=== PATIENT | male | born 1955 | race Caucasian/White ===

== ENCOUNTER 2021-09-30 05:14 | Observation (INO) ==
--- NOTE | 2021-08-27 16:28 | PAT Medication Instructions ---
Medication Instructions Date of Service August 27, 2021 Home Medications ascorbic acid (vitamin C) 1,000 mg tablet (Vitamin C) 1 g PO QPM cholecalciferol (vitamin D3) 125 mcg (5,000 unit) tablet (Vitamin D3) 125 mcg PO HS duloxetine 60 mg capsule,delayed release (Cymbalta) 60 mg PO QAM furosemide 40 mg tablet 40 mg PO QAM gabapentin 600 mg tablet 1,200 mg PO BID magnesium 200 mg tablet 400 mg PO QPM metoprolol tartrate 25 mg tablet 25 mg PO BID multivitamin 1 cap PO QAM olmesartan 20 mg tablet 20 mg PO QAM omeprazole 40 mg capsule,delayed release 40 mg PO QAM potassium chloride 20 mEq tablet,extended release 20 meq PO QAM rosuvastatin 5 mg tablet (Crestor) 5 mg PO QPM turmeric 400 mg capsule 500 mg PO BID vitamin B complex 1 cap PO QAM zinc 50 mg tablet 50 mg PO QPM STOP taking 2 weeks before surgery (or as soon as possible if surgery is within 2 weeks) turmeric 400 mg capsule 500 mg PO BID DO NOT take the morning of surgery furosemide 40 mg tablet 40 mg PO QAM multivitamin 1 cap PO QAM olmesartan 20 mg tablet 20 mg PO QAM potassium chloride 20 mEq tablet,extended release 20 meq PO QAM vitamin B complex 1 cap PO QAM Take morning of surgery With a small sip of water, OTHERWISE NOTHING TO EAT OR DRINK AFTER MIDNIGHT: duloxetine 60 mg capsule,delayed release (Cymbalta) 60 mg PO QAM gabapentin 600 mg tablet 1,200 mg PO BID metoprolol tartrate 25 mg tablet 25 mg PO BID omeprazole 40 mg capsule,delayed release 40 mg PO QAM Take evening before surgery ascorbic acid (vitamin C) 1,000 mg tablet (Vitamin C) 1 g PO QPM cholecalciferol (vitamin D3) 125 mcg (5,000 unit) tablet (Vitamin D3) 125 mcg PO HS gabapentin 600 mg tablet 1,200 mg PO BID magnesium 200 mg tablet 400 mg PO QPM metoprolol tartrate 25 mg tablet 25 mg PO BID rosuvastatin 5 mg tablet (Crestor) 5 mg PO QPM zinc 50 mg tablet 50 mg PO QPM Other Notes If you have any questions please call us at [phone] or [phone] or [phone] or [phone]
--- NOTE | 2021-09-01 12:20 | History & Physical Report ---
Date of Service September 01, 2021 date of surgery: 09/30/21 Procedure: Right Total Knee Arthroplasty Surgeon: Cristofer Hancock Assessment & Plan (1) Arthritis of right knee: Plan: Presents for preop evaluation prior to right total knee replacement at [facility]. All questions and concerns have been answered today. Will place on aspirin 81 mg p.o. twice a day for a month postop for DVT prophylaxis. We will plan on discharge home with home health physical therapy, overnight stay. He will need medical clearance as well as cardiac clearance which is scheduled for September 05. He otherwise has no other questions or concerns or like to proceed with surgical intervention The risks and benefits have been discussed including, but not limited to, risk of infection, nerve injury, stiffness, loss of motion, failure to improve, etc. Reasonable outcomes and options of treatment were discussed. An explanation of appropriate alternatives to the procedure that may be advantageous were discussed and their risks and benefits, as well as the risks and benefits of not proceeding with treatment. I offered to answer any additional inquiries concerning the treatment involved. All the patient's questions were answered. The patient is agreeable, understanding of the treatment plan and alternatives, and wishes to proceed with the treatment plan. History of Present Illness Chief Complaint: Right knee pain Primary Care Provider: NO PCP Dane is a 66 year old who complains of right knee pain, presents for pre-op evaluation prior to a right total knee replacement by Dr Hancock at [facility]. He complains of pain and stiffness in the right knee. Currently the patient states that the symptoms are moderate-severe and rated as 7/10. The pain is described as aching, sharp and throbbing. His symptoms are aggravated by ascending stairs, daily activities, first steps while awake walking. Prior NSAIDs include IBU and Aleve. He has been treated with previous injections including Durolane injections in the past without much relief. Allergies Allergy/AdvReac Type Severity Reaction Status Date / Time atorvastatin [From Lipitor] AdvReac Unknown felt old, Verified 08/22/21 12:40 muscle aches Home Medications Medication Instructions Recorded Confirmed Type ascorbic acid (vitamin C) 1,000 mg 1 g PO QPM 08/22/21 08/22/21 History tablet (Vitamin C) cholecalciferol (vitamin D3) 125 125 mcg PO HS 08/22/21 08/22/21 History mcg (5,000 unit) tablet (Vitamin D3) duloxetine 60 mg capsule,delayed 60 mg PO QAM 08/22/21 08/22/21 History release (Cymbalta) furosemide 40 mg tablet 40 mg PO QAM 08/22/21 08/22/21 History gabapentin 600 mg tablet 1,200 mg PO BID 08/22/21 08/22/21 History magnesium 200 mg tablet 400 mg PO QPM 08/22/21 08/22/21 History metoprolol tartrate 25 mg tablet 25 mg PO BID 08/22/21 08/22/21 History multivitamin 1 cap PO QAM 08/22/21 08/22/21 History olmesartan 20 mg tablet 20 mg PO QAM 08/22/21 08/22/21 History omeprazole 40 mg capsule,delayed 40 mg PO QAM 08/22/21 08/22/21 History release potassium chloride 20 mEq 20 meq PO QAM 08/22/21 08/22/21 History tablet,extended release rosuvastatin 5 mg tablet (Crestor) 5 mg PO QPM 08/22/21 08/22/21 History turmeric 400 mg capsule 500 mg PO BID 08/22/21 08/22/21 History vitamin B complex 1 cap PO QAM 08/22/21 08/22/21 History zinc 50 mg tablet 50 mg PO QPM 08/22/21 08/22/21 History Past Med/Surg History Medical History Acid reflux Aortic stenosis mild, ASA 1.2 m2 and 13 mmHg Bicuspid cardiac valve ANNEURYSM ABOVE - CURRENT SIZE 4.6 - monitored yearly/ DR BALDWIN Bradycardia History of colonic polyps BENIGN HTN (hypertension) Hyperlipidemia Mitral regurgitation mild Neuropathy Thoracic aortic aneurysm 4.8 cm, serial echos and yearly CAT per cardio Tricuspid regurgitation mild to moderate Surgical History History of cardiac cath [facility] - NO STENT(S) History of colonoscopy History of endoscopy History of lumbar fusion Family History Brother Family history of diabetes mellitus Family history of pancreatic cancer Brother Family history of diabetes mellitus Brother No problems noted. Sister Family history of colon cancer Social History Smoking Status: Never smoker Hx Alcohol Use: Yes Alcohol type: beer Preferred Language: Nepali Communication Ability: Effective Talent Acquisition Partner Required: No Beliefs That Will Affect Care: None Current Living Situation: Spouse Feels Safe at Home: Yes Assistive Devices: Glasses and Hearing Aid - Bilateral Review of Systems Review of Systems: All systems reviewed & are unremarkable except as noted in HPI & below Constitutional: no fever, no chills and no sweats Respiratory: no cough and no dyspnea Cardiovascular: no chest pain, no dyspnea and no orthopnea Gastrointestinal: no abdominal pain, no nausea and no vomiting Musculoskeletal: as per Subjective / HPI Physical Exam Physical Exam: HT: 6ft WT: 113.398 kg Constitutional: WD/WN, vitals as above no acute distress Respiratory: normal respiratory effort, lungs clear to auscultation no respiratory distress, no labored breathing and does not use accessory muscles Cardiovascular: RRR, no murmur, no edema Gastrointestinal (Abdomen): normal bowel sounds, soft, nontender, no hepatosplenomegaly Musculoskeletal: Knee: + knee abnormal to inspection (RIGHT KNEE ), + effusion (+1 effusion), + limited ROM of knee (ROM 0/3/110), + knee ROM with crepitation, + joint line tenderness (medial joint line) and + Trevor's sign positive; no deformity, no skin erythema, no ecchymosis, no surgical incision, no valgus laxity, no varus laxity, anterior drawer test negative, Omega's sign negative and pivot shift test negative Results & Data Results & Data ([facility]) Diagnostic Findings Right Knee X-ray: Right knee series showing advanced degenerative changes to the right knee, narrowing of the medial compartment and patello-femoral joint with patellar spurring noted, findings showing joint space narrowing of the medial compartment and patello-femoral joint, osteophyte formation and subchondral sclerosis noted. overall varus alignment. no acute bony pathology noted.
--- NOTE | 2021-09-01 12:53 | Anesthesiology Consultation ---
Date of Service September 01, 2021 Assessment & Plan (1) Encounter for pre-operative examination: - Elevated creatinine: Preop creatinine elevated at 1.51. No known hx of CKD. Awaiting PCP response to elevated creatinine and surgeon-ordered PCP clearance (09/05; Dr. Jesus Rivera/[facility]). - Cardiology note (07/28/21): "Per [facility] Criteria pt is low risk (0.4%).. OK to clear" > Per patient, he is also scheduled to see cardiology prior to surgery (09/05; Dr. Benoit). Awaiting cardiology office visit note. - COVID screening: Per assessment on 09/01: No known COVID-19 positive contacts or current COVID-19 related symptoms. Travel screen negative. Patient vaccinated. Surgeon arranging preop COVID testing. Awaiting results. Chart Review Chart Review: Patient seen in Pre Admission Testing Teaching & Discussion Pre-Anesthesia Teaching/Discussion Notes: Instructed NPO after midnight before surgery,except medications with 15 cc of water. Medication instructions provided according to the PAT guidelines. History Surgery Operation Date: 09/30/21 08:25 Proposed Procedures p Right Total Knee Arthroplasty - Cristofer Hancock DO Height/Weight Height: 6 ft Weight: 120.5 kg Allergies Allergy/AdvReac Type Severity Reaction Status Date / Time atorvastatin [From Lipitor] AdvReac Unknown [place] old, Verified 09/01/21 12:46 muscle aches Medications Home Medications Medication Instructions Recorded Confirmed Last Taken ascorbic acid (vitamin C) 1,000 mg 1 g PO QPM 08/22/21 08/22/21 Unknown tablet (Vitamin C) cholecalciferol (vitamin D3) 125 125 mcg PO HS 08/22/21 08/22/21 Unknown mcg (5,000 unit) tablet (Vitamin D3) duloxetine 60 mg capsule,delayed 60 mg PO QAM 08/22/21 08/22/21 Unknown release (Cymbalta) furosemide 40 mg tablet 40 mg PO QAM 08/22/21 08/22/21 Unknown gabapentin 600 mg tablet 1,200 mg PO BID 08/22/21 08/22/21 Unknown magnesium 200 mg tablet 400 mg PO QPM 08/22/21 08/22/21 Unknown metoprolol tartrate 25 mg tablet 25 mg PO BID 08/22/21 08/22/21 Unknown multivitamin 1 cap PO QAM 08/22/21 08/22/21 Unknown olmesartan 20 mg tablet 20 mg PO QAM 08/22/21 08/22/21 Unknown omeprazole 40 mg capsule,delayed 40 mg PO QAM 08/22/21 08/22/21 Unknown release potassium chloride 20 mEq 20 meq PO QAM 08/22/21 08/22/21 Unknown tablet,extended release rosuvastatin 5 mg tablet (Crestor) 5 mg PO QPM 08/22/21 08/22/21 Unknown turmeric 400 mg capsule 500 mg PO BID 08/22/21 08/22/21 Unknown vitamin B complex 1 cap PO QAM 08/22/21 08/22/21 Unknown zinc 50 mg tablet 50 mg PO QPM 08/22/21 08/22/21 Unknown Past Medical History Medical History Acid reflux Aortic stenosis Mild, ASA 1.2 m2 and 13 mmHg per 09/2020 echo Ascending aorta dilation Dilated ascending aorta (4.8cm) on 09/30/20 echo Bicuspid cardiac valve Bradycardia HTN (hypertension) Hyperlipidemia Neuropathy Exercise / Class Metabolic Activity III < 4 Walking/Shop/Light housework (one FS (no CP, + SOB)) Past Family History Family History Brother Family history of diabetes mellitus Family history of pancreatic cancer Brother Family history of diabetes mellitus Brother No problems noted. Sister Family history of colon cancer Past Surgical History Surgical History History of cardiac cath Remote hx ([place]) > no stents History of colonoscopy History of endoscopy History of lumbar fusion Past Anesthesia History No Hx of Anesthesia Complications and No Family Hx of Anesthesia Complications History of PONV No Hx of PONV and No Hx of Motion Sickness Social History Smoking Status: Never smoker tobacco type: smokeless tobacco Do You Dip or Chew Tobacco: Yes (1 can/week > advised none DOS) Hx Alcohol Use: Yes Alcohol type: beer alcohol intake frequency: holidays/special occasions only substance use type: does not use Review of Systems Patient denies chest pain, shortness of breath, fever, chills, cough, wheezing, palpitations. Physical Exam Vital Signs VITALS BP 97/63 (Earlier today 118/75 per pt) P 69 TEMP 98.4 SP02 95%RA RESP 16 PHYSICAL Full cervical extension range of motion. Full TMJ range of motion. TMD 4 finger breaths Mallampati Score 1 Dentition: lower partial Lungs: clear throughout to auscultation Cardiac: regular rate and rhythm, distant heart sounds Spine: normal Carotid arteries: negative bruit Extremities: no edema Lab Results Anesthesia Preop Results Results Anesthesia Widget: WBC 7.68 K/ul (4.8-10.8) 09/01/21 Hgb 14.2 g/dl (14.0-18.0) 09/01/21 Hct 42.9 % (40.1-51.0) 09/01/21 Plt 211 K/uL (130-400) 09/01/21 Na 139 mmol/L (136-145) 09/01/21 K 4.3 mmol/L (3.5-5.1) 09/01/21 Cl 102 mmol/L (98-107) 09/01/21 CO2 28 mmol/L (21-32) 09/01/21 BUN 23 mg/dl (6-23) 09/01/21 Creat 1.51 mg/dl (0.6-1.4) H 09/01/21 Glucose Level 149 mg/dl (70-99(Fasting)) H 09/01/21 PT 10.3 Seconds (9.0-12.0) 09/01/21 PTT 25.1 Seconds (21.0-31.0) 09/01/21 INR 1.0 (0.9-1.1) 09/01/21 HA1c 5.9 % (4.5-5.6) H 09/01/21 Urine Color Yellow 09/01/21 Urine Appearance Clear (Clear) 09/01/21 Urine pH 5.5 (4.5-7.5) 09/01/21 Urine Specific [place] 1.013 (1.000-1.030) 09/01/21 Urine Protein Negative (Negative) 09/01/21 Urine Glucose (UA) Negative (Negative) 09/01/21 Urine Ketones Negative (Negative) 09/01/21 Urine Blood Negative (Negative) 09/01/21 Urine Nitrite Negative (Negative) 09/01/21 Urine Bilirubin Negative (Negative) 09/01/21 Urine Urobilinogen Negative (Negative) 09/01/21 Urine Leukocyte Esterase Negative (Negative) 09/01/21 Blood Type A Positive 09/01/21 Antibody Screen NEGATIVE 09/01/21 Testing Electrocardiogram Date: 09/01/21 NSR at 65bpm. LAD. Minimal voltage criteria for LVH, may be normal variant. Chest X-Ray Date: 09/01/21 Findings: + NAD Echocardiogram Date: 09/30/20 EF 55-60%. Thickened and bicuspid aortic valve with mild aortic stenosis. JINNY 1.2 cm. Mean gradient is 30 mmHg. Thickened mitral valve with mild r egurgitation. Mild to moderate TR. Mild IN. Mild dilated aortic root. Ascending aorta is dilated at 4.8 cm. There is an impaired relaxation pattern consistent with diastolic dysfunction grade 1. Stress Test Date: 07/14/19 No significant ischemia or infarction. SPECT perfusion images are considered to be within normal limits. Nondiagnostic ECG response. LVEF 54%. 39% MPHR.
[2021-09-30] MEDS ORDERED: ROPIVACAINE 0.5% HCL/PF 150 MG, BUPIVACAINE 0.75% MPF 20 ML, EPINEPHrine 30MG/30ML (OR ... INFIL SCH (06:00)
[2021-09-30] MEDS ORDERED: dexAMETHasone 4 MG TAB PO SCH (06:00)
[2021-09-30] MEDS ORDERED: GABAPENTIN 300 MG CAP PO SCH (06:00)
[2021-09-30] MEDS ORDERED: ACETAMINOPHEN 500 MG TAB PO SCH (06:00)
[2021-09-30] MEDS ORDERED: METOCLOPRAMIDE HCL 10 MG TABLET PO SCH (06:00)
[2021-09-30] MEDS ORDERED: FAMOTIDINE 20 MG TAB PO SCH (06:00)
[2021-09-30] MEDS ORDERED: CeleBREX 200 MG CAP PO SCH (06:00)
[2021-09-30] MEDS ORDERED: TRANEXAMIC ACID 1,000 MG **IV Intra-op IV SCH (06:00)
[2021-09-30] MEDS ORDERED: TRANEXAMIC ACID 1,000 MG **IV Pre-op IV SCH (06:00)
[2021-09-30] MEDS ORDERED: LR 500ML BOLUS, THEN 15ML/HR IV SCH (06:00)
[2021-09-30] MEDS ORDERED: EPINEPHrine INJ 1 MG/ML AMP ONE (06:22)
[2021-09-30] MEDS ORDERED: ROPIVACAINE 0.5% 5 MG/ML 30 ML VIAL ONE (06:22)
[2021-09-30] MEDS ORDERED: BUPIVACAINE 0.5 % 5 MG/1 ML PF 10ML VIAL ONE (06:22)
[2021-09-30] MEDS ORDERED: ORTHO JOINT ANESTHETIC ONE (06:42)
[2021-09-30] MEDS ORDERED: PROPOFOL IV EMULSION 10 MG/ML 100 ML VIAL IV ONE (06:49)
[2021-09-30] MEDS ORDERED: MIDAZOLAM HCL 1 MG/ML 2ML VIAL ONE (06:53)
[2021-09-30] MEDS ORDERED: ATROPINE SULFATE 0.1 MG/ML 10ML SYR IV PRN (07:01)
[2021-09-30] MEDS ORDERED: PROMETHAZINE HCL 12.5 MG in SODIUM CHLORIDE 0.9% 50 ML IV PRN (07:01)
[2021-09-30] MEDS ORDERED: fentaNYL citrate 100 MCG/2 ML VIAL IV PRN (07:01)
[2021-09-30] MEDS ORDERED: ePHEDrine sulfate 50 MG/ML AMP IV PRN (07:01)
[2021-09-30] MEDS ORDERED: HYDROmorphone INJ 2 MG/ML SYR/VIAL IV PRN (07:01)
[2021-09-30] MEDS ORDERED: ONDANSETRON INJ 2 MG/ML 2 ML VIAL IV PRN ×2 (07:01→10:47)
--- NOTE | 2021-09-30 07:15 | History & Physical Bridge Note ---
Date of Service September 30, 2021 History & Physical Bridge Note I have examined the patient, reviewed the History & Physical and in the interval since the performance of the History & Physical I have noted the following changes of clinical significance: no changes noted
--- NOTE | 2021-09-30 08:27 | Operative Report ---
Post Operative Report Pre & Post Diagnosis Operation Date: 09/30/21 07:00 Pre-Op Diagnosis: Unilateral Primary Osteoarthritis, Right Knee Post-Op Diagnosis: Unilateral Primary Osteoarthritis, Right Knee I identified the patient and participated in the time-out.: Yes Procedure Operation Date: 09/30/21 07:00 Actual Procedures p Right Total Knee Arthroplasty(Right) utilizing [employer] persona total knee arthroplasty size 12 standard femur H tibia 10 medial constrained polythirty 4 oval patella- Cristofer Hancock DO Surgeon Cristofer Hancock DO Floorworker Lasting Vic GOTTLIEB Estimated Blood Loss 5 Findings Consistent with Post-Op Diagnosis Patient presents with severe end-stage tricompartmental degenerative joint disease 15 degree flexion contracture varus alignment subchondral sclerosis marginal osteophytes [id number] for total knee arthroplasty with a moderate to large effusion Specimens Bone and cartilage Drains Medium bore Hemovac Anesthesia Type MAC Spinal Regional Complications none Disposition Accompanied Patient To Recovery: No Disposition: Recovery Room Indications Patient presents for total knee arthroplasty after failed attempted conservative management and physical therapy anti-inflammatories relative rest activity modification corticosteroid injection Visco supplementation above intraoperative findings are noted Description of Procedure After proper prepping and draping of the Right lower extremity anterior midline incision was made over the region of the extensor extensor mechanism after meticulous hemostasis was obtained and maintained in subcutaneous tissues a medial parapatellar incision was made The patella was subluxed lateralward the medial lateral gutter were cleaned from any hypertrophic synovitis and scar tissue of the distal femoral block was placed and the distal femoral osteotomy cut was made subsequently the chamfers anterior and posterior osteotomy cuts were made utilizing the 4-in-1 block the tibia was subsequently subluxed anteriorward medial and ateral meniscal remnants were excised in their entirety remnants of the anterior and posterior cruciate ligaments were excised in their entirety excellent exposure of the proximal tibia was obtained the tibial osteotomy guide was placed on the proximal tibial osteotomy cut was made once again the knee was irrigated with copious amounts of sterile saline solution the patella was subsequently everted lateralward thickened scar tissue around the patella was removed the patella was subsequently cut utilizing a freehand technique and was drilled prepared for final preparation and placement of patella socially flexion-extension gaps were checked and the equal and symmetric trials were placed to the appropriate femoral and tibial trials with poly-spacer being placed for equal flexion and extension gaps and full range of motion including extension to 0 and flexion to 140 the trial components after having been taken to recovery range of motion was subsequently removed meticulous hemostasis was obtained and maintained subsequently a knee block injection of joint cocktail including ropivacaine 0.5% 150 mg. Bupivacaine 0.5% epinephrine 1-200,030 mL's toradol 30 mg dexamethasone 4 mg ketamine 10 mg clonidine 100 micrograms normal saline solution 30 mg was infiltrated into the soft tissues of the posterior knee medial lateral gutters and periosteal synovium special attention was paid to protect neurovascular structures at all times subsequently trial components having been removed the knee was irrigated with sterile saline solution. debris was removed the proximal tibia was subsequently prepared and was made ready for the placement of the tibial component tibial component was also cemented and tamped into position the femoral component was subsequently placed and cemented in the position the patellar component was subsequently cemented in position because hemostasis once again obtained and maintained wound having been thoroughly irrigated with debridement and debridement lavage was performed as well as a medial parapatellar incision closed with #1 Vicryl in interrupted fashion subcutaneous was closed with #2 Vicryl skin was closed with skin clips. PA-C was necessary for prepping and drapping as well as wound closure of deep fascia Sub cutaneous tissue and skin and was necessary for the case. A sterile compressive dressing was placed patient was taken to recovery in stable condition of report dictated by Santi I attest to the content of the Intraoperative Record and any orders documented therein. Any exceptions are noted below.Due to the complex nature of the procedure, the entire surgery was performed with the operational assistance of Vic GOTTLIEB the assistant professor of forestry, under direct supervision, was involved in the actual performance of all aspects of the surgical procedure including hemostasis, tissue retraction and incision, instrument management, patient positioning, and wound closure. I attest to the content of the Intraoperative Record and any orders documented therein. Any exceptions are noted below.
[2021-09-30] MEDS ORDERED: PROPOFOL IV EMULSION 10 MG/ML 20 ML VIAL IV ONE (08:45)
--- NOTE | 2021-09-30 09:47 | XRay Report ---
XR knee RT 1 or 2V routine HISTORY: 66 years-old Male Surgical Post Op right knee total joint arthroplasty COMPARISON: None TECHNIQUE: 2 views of the right knee FINDINGS: Right knee total joint arthroplasty with patellar resurfacing. Surgical drainage catheter is in place along with expected postoperative soft tissue swelling with deep tissue air. No acute fracture, brissa lignment or unexpected opaque foreign body. IMPRESSION: Right knee total joint arthroplasty with expected postoperative changes. ACT 112: Negative or not required by law. The above report was generated using voice recognition software. It may contain grammatical, syntax o r spelling errors. Electronically signed by: Kevan Armstrong M.D. 09/30/2021 9:46 AM
[2021-09-30] MEDS ORDERED: oxyCODONE HCL IR 5 MG TAB (IMMEDIATE RELEASE) PO PRN (10:47)
[2021-09-30] MEDS ORDERED: bisacodyL 10 MG SUPP PR PRN (10:47)
[2021-09-30] MEDS ORDERED: MAGNESIUM HYDROXIDE SUSP 30 ML UDC PO PRN (10:47)
[2021-09-30] MEDS ORDERED: HYDROmorphone INJ 0.5 MG/0.5 ML SYR IV PRN (10:47)
[2021-09-30] MEDS ORDERED: diphenhydrAMINE 50 MG/ML VIAL IV PRN (10:47)
[2021-09-30] MEDS ORDERED: NALOXONE HCL 0.4 MG/1 ML VIAL/CARP IV PRN (10:47)
--- NOTE | 2021-09-30 11:03 | Anesthesiology Progress Note ---
Date of Service September 30, 2021 Anesthesia Post Procedure Vital Signs Vital Signs: Temp Pulse Pulse Resp BP Pulse Ox O2 Del Method 09/30/21 10:45 36.3 C L 60 16 114/72 98 Room Air 09/30/21 10:15 36.4 C L 59 L 16 108/81 99 Nasal Cannula 09/30/21 10:05 58 L 12 117/73 97 Nasal Cannula 09/30/21 09:40 60 17 111/71 97 Nasal Cannula 09/30/21 09:30 60 14 109/71 95 Nasal Cannula 09/30/21 09:50 36.5 C 57 L 14 116/71 95 Nasal Cannula 09/30/21 09:20 65 11 L 104/65 94 Nasal Cannula 09/30/21 09:10 36.4 C L 71 14 117/64 96 Oxymask 09/30/21 05:59 36.8 C 63 18 151/93 H 97 Room Air O2 Flow Rate 09/30/21 10:45 09/30/21 10:15 2 09/30/21 10:05 2 09/30/21 09:40 4 09/30/21 09:30 4 09/30/21 09:50 2 09/30/21 09:20 4 09/30/21 09:10 5 09/30/21 05:59 Transfer of Care Handoff Completed per policy Notes Mental Status: alert / awake / arousable and participated in evaluation Nausea / Vomiting: adequately controlled Pain: adequately controlled Airway Patency, RR, SpO2: stable & adequate BP & HR: stable & adequate Hydration State: stable & adequate Neuraxial Anesthesia: was administered and sensory block is resolving Anesthetic Complications: no major complications apparent and Pt Satisfied with anesthetic care
[2021-09-30] MEDS: SODIUM CHLORIDE 0.9% 1000ML 1,000 ML IV SCH ×2 (11:08→15:36)
[2021-09-30] MEDS: ACETAMINOPHEN 500 MG TAB PO SCH ×2 (15:37→22:37)
[2021-09-30] MEDS: ceFAZolin 2000MG 2,000 MG/15 ML SYR IV SCH ×2 (17:16→22:38)
[2021-09-30] MEDS: DOCUSATE SODIUM 100 MG CAP PO SCH (20:27)
[2021-09-30] MEDS: METOPROLOL TARTRATE 25 MG TAB PO SCH (20:28)
[2021-09-30] MEDS: GABAPENTIN 600 MG TAB PO SCH (20:29)
[2021-09-30] MEDS: ASPIRIN 81 MG ECTAB PO SCH (20:29)
[2021-09-30] MEDS ORDERED: ZINC SULFATE 220 MG CAPSULE PO SCH (21:00)
[2021-09-30] MEDS ORDERED: ROSUVASTATIN CALCIUM 5 MG TAB PO SCH (21:00)
[2021-09-30] MEDS ORDERED: CHOLECALCIFEROL 5,000 UNITS 125 MCG TAB PO SCH (21:00)
[2021-09-30] MEDS ORDERED: MAGNESIUM OXIDE 400 MG TAB PO SCH (21:00)
[2021-09-30] MEDS ORDERED: SENNA 8.6 MG TAB PO SCH (21:00)
[2021-10-01] MEDS: SODIUM CHLORIDE 0.9% 1000ML 1,000 ML IV SCH (02:08)
[2021-10-01] MEDS: ACETAMINOPHEN 500 MG TAB PO SCH (05:47)
--- NOTE | 2021-10-01 07:33 | Orthopedic Progress Note ---
Date of Service October 01, 2021 Assessment & Plan (1) Arthritis of right knee: Plan: POD #1 s/p Right TKA pt/ot dvt proph with VILMA/SCD/ASA plan for d/c home with HHPT Admission and Anticipated Discharge Date Admission Date: September 30, 2021 Subjective POD #1 s/p Right TKA Review of Systems Constitutional: no fever, no chills and no sweats Respiratory: no cough and no dyspnea Cardiovascular: no chest pain and no dyspnea Gastrointestinal: no abdominal pain, no nausea and no vomiting Physical Exam Physical Exam: Vital Signs Temp 36.5 C 10/01/21 06:28 Pulse 55 L 10/01/21 06:28 Resp 20 10/01/21 06:28 BP 125/74 10/01/21 06:28 Pulse Ox 93 10/01/21 06:28 O2 Del Method 10/01/21 06:28 O2 Flow Rate 2 09/30/21 10:15 Intake & Output 09/30/21 10/01/21 10/01/21 18:59 06:59 18:59 Intake Total 2122.5 / 3122.5 1000 / 3122.5 Output Total 141 / 1142 1001 / 1142 Balance 1981.5 / 1979.5 -1979. Weight 119.2 kg Intake: IV 272.5 / 1272.5 1000 / 1272.5 Lactated Ringe r's 1,000 ml @ 15 0 / 0 mls/hr IV .Q24 H RICKY Rx#: [id number] Sodium Chlorid e 0.9% 1000ML 1, 1000 / 1000 000 ml @ 100 m ls/hr IV .Q10H RICKY Rx#:[id number] Tranexamic Aci d / 0.7% NaCl 1, 200 / 200 000 mg In 100 ml @ 600 mls/hr IV TODAY@0600 RICKY Rx#:[id number] ceFAZolin 3000 MG 72.5 ml @ 130 72.5 / 72.5 mls/hr IV PREO P RICKY Rx#: [id number] IV Perioperative 1500 / 1500 Oral 350 / 350 Output: Urine 701 / 701 Estimated Blood Loss 5 / 5 Drain Output 136 / 436 300 / 436 Left Knee Hemo vac #1 / Right Knee Hem ovac #1 135 / 435 300 / 435 Musculoskeletal: Right Leg: NVDI, calf SNT, negative myrtle sign. DP palpable, able to wiggle toes/ankle movement without difficulty. dressing clean dry and intact. Results & Data ([facility]) Vital Signs (Past 12 Hours) Vital Signs Temp Pulse Pulse Resp BP Pulse Ox O2 Del Method 10/01/21 06:28 36.5 C 55 L 20 125/74 93 Room Air 10/01/21 04:01 36.4 C L 73 20 118/64 Room Air 09/30/21 22:17 36.5 C 62 16 106/68 95 Room Air 09/30/21 20:24 36.8 C 64 16 113/66 93 Room Air
[2021-10-01] MEDS: ASPIRIN 81 MG ECTAB PO SCH (08:26)
[2021-10-01] MEDS: DOCUSATE SODIUM 100 MG CAP PO SCH (08:26)
[2021-10-01] MEDS: GABAPENTIN 600 MG TAB PO SCH (08:27)
[2021-10-01] MEDS: METOPROLOL TARTRATE 25 MG TAB PO SCH (08:28)
[2021-10-01] MEDS ORDERED: MULTIVITAMIN TAB PO SCH (09:00)
[2021-10-01] MEDS ORDERED: POTASSIUM CHLORIDE CRTAB 20 MEQ TABCR PO SCH (09:00)
[2021-10-01] MEDS ORDERED: NON-FORMULARY MEDICATION (Multivitamin Capsule) PO SCH (09:00)
[2021-10-01] MEDS ORDERED: FUROSEMIDE 40 MG TAB PO SCH (09:00)
[2021-10-01] MEDS ORDERED: OLMESARTAN MEDOXOMIL 20 MG TAB PO SCH (09:00)
[2021-10-01] MEDS ORDERED: DULoxetine HCL 60 MG CAP PO SCH (09:00)
[2021-10-01] MEDS ORDERED: PANTOprazole 40 MG TAB PO SCH (09:00)
[2021-10-01 09:08] LABS: Hematocrit (blood only) 35.6 % (40.1-51.0); Mean Corpuscular Hemoglobin 30.9 pg (25.0-34.0); Mean Corpuscular Hgb Conc 33.7 g/dL (32.0-36.0); Mean Corpuscular Volume 91.8 fL (80.0-100.0); Mean Platelet Volume 9.9 fL (9.4-12.4); Platelet Count 190 K/uL (130-400); RDW Coefficient of Variation 12.3 % (11.5-14.5); RDW Standard Deviation 41.2 fL (36.4-46.3); Red Blood Count 3.88 M/uL (4.63-6.08); White Blood Count 14.85 K/ul (4.8-10.8)
[2021-10-01 09:29] LABS: BUN Creatinine Ratio 21.6 (10-20); Calcium 8.8 mg/dl (8.5-10.1); Creatinine Clr Calc Pharmacy 69.3 ml/min; Est GFR (African American) 62.6 ml/min; Est GFR (Non-African American) 54.1 ml/min; Potassium 4.6 mmol/L (3.5-5.1)
--- NOTE | 2021-10-02 11:20 | Discharge Summary ---
Date of Service October 02, 2021 Admission HPI Per Admitting Provider Dane is a 66 year old who complains of right knee pain, presents for pre-op evaluation prior to a right total knee replacement by Dr Hancock at [facility]. He complains of pain and stiffness in the right knee. Currently the patient states that the symptoms are moderate-severe and rated as 7/10. The pain is described as aching, sharp and throbbing. His symptoms are aggravated by ascending stairs, daily activities, first steps while awake walking. Prior NSAIDs include IBU and Aleve. He has been treated with previous injections including Durolane injections in the past without much relief. Admission Exam Per Admitting Provider Physical Exam: HT: 6ft WT: 113.398 kg Constitutional: WD/WN, vitals as above no acute distress Respiratory: normal respiratory effort, lungs clear to auscultation no respiratory distress, no labored breathing and does not use accessory muscles Cardiovascular: RRR, no murmur, no edema Gastrointestinal (Abdomen): normal bowel sounds, soft, nontender, no hepatosplenomegaly Musculoskeletal: Knee: + knee abnormal to inspection (RIGHT KNEE ), + effusion (+1 effusion), + limited ROM of knee (ROM 0/3/110), + knee ROM with crepitation, + joint line tenderness (medial joint line) and + Trevor's sign positive; no deformity, no skin erythema, no ecchymosis, no surgical incision, no valgus laxity, no varus laxity, anterior drawer test negative, Omega's sign negative and pivot shift test negative Principal Diagnosis Right knee osteoarthritis Discharge Data Allergies Allergy/AdvReac Type Severity Reaction Status Date / Time atorvastatin [From Lipitor] AdvReac Unknown [place] old, Verified 09/30/21 05:50 muscle aches Procedures Performed Operation Date: 09/30/21 07:00 Actual Procedures p Right Total Knee Arthroplasty(Right) - Cristofer Hancock DO Ordered Studies 09/30/21 05:00 US - OR guided needle placemen Routine Hospital Course (1) Arthritis of right knee: Patient:DANE AVALOS Admit Date:09/30/21 MR#:[id number] Att Phy:Cristofer Hancock,D.O. Acct ID:[id number] Phyllis Phy:Jesus Rivera DO Date:1955 Fam Phy: Age:66 Location:3W Sex:M Room/Bed:[facility] cc: ~ *NOTICE TO RECEIVING REPUBLICAN/AGENCY This information is strictly Confidential and protected under [place] law. [place] law prohibits you from making any further disclosure of this information unless further disclosure is expressly permitted by the written consent of the person to whom it pertains or is authorized by law. A general authorization for the release of medical or other information is not sufficient for this purpose. Hospital accepts no responsibility if the information is made available to any other person, INCLUDING THE PATIENT. Date of Service October 01, 2021 Assessment & Plan (1) Arthritis of right knee: Plan: POD #1 s/p Right TKA pt/ot dvt proph with VILMA/SCD/ASA plan for d/c home with HHPT Admission and Anticipated Discharge Date Admission Date: September 30, 2021 Subjective POD #1 s/p Right TKA Review of Systems Constitutional: no fever, no chills and no sweats Respiratory: no cough and no dyspnea Cardiovascular: no chest pain and no dyspnea Gastrointestinal: no abdominal pain, no nausea and no vomiting Physical Exam Physical Exam: Vital Signs Temp 36.5 C 10/01/21 06:28 Pulse 55 L 10/01/21 06:28 Resp 20 10/01/21 06:28 BP 125/74 10/01/21 06:28 Pulse Ox 93 10/01/21 06:28 O2 Del Method 10/01/21 06:28 O2 Flow Rate 2 09/30/21 10:15 Intake & Output 09/30/21 10/01/21 10/01/21 18:59 06:59 18:59 Intake Total 2122.5 / 3122.5 1000 / 3122.5 Output Total 141 / 1142 1001 / 1142 Balance 1980.5 / 1979.5 -1979.5 Weight 119.2 kg Intake: IV 272.5 / 1272.5 1000 / 1272.5 Lactated Ringe r's 1,000 ml @ 15 0 / 0 mls/hr IV .Q24 H RICKY Rx#: [id number] Sodium Chlorid e 0.9% 1000ML 1, 1000 / 1000 000 ml @ 100 m ls/hr IV .Q10H RICKY Rx#:[id number] Tranexamic Aci d / 0.7% NaCl 1, 200 / 200 000 mg In 100 ml @ 600 mls/hr IV TODAY@0600 [facility] Rx#:[id number] ceFAZolin 3000 MG 72.5 ml @ 130 72.5 / 72.5 mls/hr IV PREO P RICKY Rx#: [id number] IV Perioperative 1500 / 1500 Oral 350 / 350 Output: Urine 701 / 701 Estimated Blood Loss 5 / 5 Drain Output 136 / 436 300 / 436 Left Knee Hemo vac #1 1 / Right Knee Hem ovac #1 135 / 435 300 / 435 Musculoskeletal: Right Leg: NVDI, calf SNT, negative myrtle sign. DP palpable, able to wiggle toes/ankle movement without difficulty. dressing clean dry and intact. Results & Data ([facility]) Vital Signs (Past 12 Hours) Vital Signs Temp Pulse Pulse Resp BP Pulse Ox O2 Del Method 10/01/21 06:28 36.5 C 55 L 20 125/74 93 Room Air 10/01/21 04:01 36.4 C L 73 20 118/64 Room Air 09/30/21 22:17 36.5 C 62 16 106/68 95 Room Air 09/30/21 20:24 36.8 C 64 16 113/66 93 Room Air Signed By: <Electronically signed by Dario Calero PA-C> 10/01/21 0733 <Electronically signed by Nickolas Kirk MD> 10/01/21 0914 Total Time Total Time Spent Total Time Spent (In Minutes): 5 Discharge Plan Discharge Items Patient Disposition: Home - Home Health Services Reason For Visit: Unilateral Primary Osteoarthritis, Right Knee Discharge Diagnosis: RIGHT TOTAL KNEE REPLACEMENT Activity: Per Instructions section Weightbearing Comment: WBAT WITH WALKER Non-emergency contact: Surgeon Call non-emergency contact if: you have any medication questions, your temperature is above 101, your wound has increased drainage and your wound pain has increased Follow-up/Referrals: Jesus Rivera DO [Primary Care Provider] - Diet: Regular Addtl Attending Provider Instructions: ACTIVITY RECOMMENDATIONS: SELF CARE INSTRUCTIONS AFTER TOTAL KNEE REPLACEMENT A. You may need to continue a physical therapy program after discharge from the hospital. There are several options available to you. Your doctor will assist you in selecting the best one for you. 1. An out-patient facility 2 to 3 times a week for therapy or home therapy. 2. Continue working on all exercises taught to you in the hospital. Your goals should be to increase bending of your knee to 90 degrees and beyond and to fully straighten your knee. B. You may progress at your own pace from walking with a walker or crutches to a cane; then to no assistive devices. C. Make walking a part of your daily routine. Be up as much as comfortable with rest periods throughout the day. Rest with leg elevation is very important. Use the ice wrap frequently for the first 3-4 weeks. D. There are no restrictions on activities. 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 E. Wear the long elastic stockings (VILMA hose) 20 hours a day for 2 weeks after surgery. They can be removed several times a day for laundering and for a bath. F. You may shower, no tub baths until cleared by your doctor. SPECIAL CARE INSTRUCTIONS: VERY IMPORTANT TO READ AND REVIEW A. There are a few signs you need to watch for after you are home. Call [facility] if you notice any of the followin. Increased severe knee pain. Some pain is expected especially when you exercise. 2. Increased swelling in your leg or knee; pain or swelling of the calf muscle in either lower leg. 3. Any fluid drainage from the incision. 4. Shortness of breath or chest pain. B. Please call [facility] at if you have any concerns or questions about your operation or recovery. The doctor or his nurse will return your call promptly. C. You must take antibiotics before dental work, bladder, bowel or other surgery. Your doctor will provide you with a permanent care to carry describing this precaution. IMPORTANT: * REMEMBER TO TAKE ASPIRIN, 81 MG, TWICE DAILY FOR 4 WEEKS UNLESS OTHERWISE DIRECTED. THIS IS YOUR BLOOD THINNER. * HIGH RISK PATIENTS MAY BE PRESCRIBED A STRONGER BLOOD THINNER. THIS WILL BE PROVIDED AT DISCHARGE. * CALL IF INCREASED PAIN, REDNESS, DRAINAGE OR FEVER GREATER THAT 101. * WEAR VILMA HOSE 20 HOURS PER DAY FOR 2 WEEKS. * SIN Dressing- This is a large suction dressing covering your incision. This will help pull any excess drainage from the wound and allow your incision to heal properly. You may shower with this if you can keep the unit outside of the shower. If any bleeding or leakage is noted please call your doctor's office. This will remain on your incision for 7 days and then should be removed. This can be done yourself or by the home nursing staff if applicable. The entire unit is disposable once removed. Once removed, keep incision clean and dry. If redness or drainage is noted, please call your surgeon. ONCE SIN IS REMOVED, FOLLOW THESE INSTRUCTIONS: DERMABOND Prineo- This is a mesh tape dressing that is covered with glue. It should remain in place until the incision is properly healed, usually 10-14 days. This dressing is designed to naturally slough off. You may trim the excess mesh tape as it peels off. Incision may be briefly wet in a shower. Dry immediately by blotting with a clean, dry towel. Do not bath or swim until instructed by your doctor. Do not scratch, rub, or pick at the dressing. Do not apply any topical ointments or lotions until dressing is completely removed and/or instructed by your doctor. There may be a small piece of suture material at one end of your incision. Do not pull or trim this. If it is bothersome or catching on clothing, you may cover it with a band-aid. IF INCISION IS LEAKING THROUGH DRESSING, CALL THE OFFICE . FOLLOW UP VISIT: If appointment is not already scheduled: Please call [facility] [place] to make a follow-up appointment for 2 weeks after your surgery at . Pending Studies at Discharge: No Stand-Alone Forms: My [facility] All About Baby., Smoking Cessation Medications and DC Order Prescriptions: New aspirin 81 mg Tablet,Delayed Release (Dr/Ec) 81 mg PO BID 30 Days Qty: 60 0RF acetaminophen [Tylenol Extra Strength] 500 mg Tablet 1,000 mg PO Q8 21 Days Qty: 126 0RF oxycodone 5 mg Tablet 5 - 10 mg PO Q6H PRN (Reason: pain) Qty: 30 0RF Rx Instructions: Ongoing therapy, supervising Dr. Willian Hancock. Max 6 tabs in 24 hours docusate sodium 100 mg Capsule 100 mg PO BID 10 Days Qty: 20 0RF cefadroxil 500 mg capsule 500 mg PO BID 14 Days Qty: 28 0RF Continued furosemide 40 mg Tablet 40 mg PO QAM gabapentin 600 mg Tablet 1,200 mg PO BID omeprazole 40 mg Capsule,Delayed Release(Dr/Ec) 40 mg PO QAM olmesartan 20 mg Tablet 20 mg PO QAM rosuvastatin [Crestor] 5 mg Tablet 5 mg PO QPM metoprolol tartrate 25 mg Tablet 25 mg PO BID duloxetine [Cymbalta] 60 mg Capsule,Delayed Release(Dr/Ec) 60 mg PO QAM potassium chloride 20 mEq Tablet Extended Release 20 meq PO QAM ascorbic acid (vitamin C) [Vitamin C] 1,000 mg Tablet 1 g PO QPM zinc 50 mg Tablet 50 mg PO QPM multivitamin Capsule 1 cap PO QAM Label Comments: CENTRUM ADULT 50 vitamin B complex Capsule 1 cap PO QAM magnesium 200 mg Tablet 400 mg PO QPM cholecalciferol (vitamin D3) [Vitamin D3] 125 mcg (5,000 unit) Tablet 125 mcg PO HS Discontinued turmeric 400 mg Capsule 500 mg PO BID Label Comments: TURMERIC CURCUMIN Discharge Orders: Discharge Order (Routine); Ordered 10/01/21 Ordered By: Dario Calero Admission Data Admit Date/Time: 09/30/21 09:23 Attending Provider: Cristofer Hancock Admit Provider: Cristofer Hancock Primary Care Provider: Jesus Rivera Other Providers: [facility],Home [facility] Other Interventions: Discharge Summary Assessment (RN) Last Done: 10/01/21 10:48
== END 2021-10-01 12:00 | disposition home health service (06) ==
LOC: ASU 05:14 → 3W 05:14